=== PATIENT | female | born 1935 | race Caucasian/White ===

== ENCOUNTER 2018-12-12 01:27 | Emergency (ER) | payer OTHER ==
[~2018-12-12] VITALS: Ht 142.2 cm; Wt 50.3 kg
[2018-12-12 02:00] VITALS: BP_SYST 125
[2018-12-12] MEDS ORDERED: LEVO25TA2 PO (02:18)
[2018-12-12] MEDS ORDERED: LIP20 PO (02:18)
[2018-12-12] MEDS ORDERED: NACL 0.9% 1,000 ML IV ONE ×2 (03:15→04:30)
[2018-12-12] MEDS ORDERED: MORPHINE 2 MG/ML INJ. SYRINGE IVP ONE (03:45)
[2018-12-12 03:51] LABS: BASOPHILS % (AUTO) 0.2 % (0.0-2.0); EOSINOPHILS % (AUTO) 0.2 % (0.0-4.0); HEMATOCRIT 33.2 % (36-48); LYMPHOCYTES # (AUTO) 2.2 K/uL (1.0-5.5); LYMPHOCYTES % (AUTO) 15.1 % (20.5-51.5); MEAN CORPUSCULAR HEMOGLOBIN 29 pg (27-31); MEAN CORPUSCULAR HGB CONC 33 % (32-36); MEAN CORPUSCULAR VOLUME 88 fL (79.0-98.0); MONOCYTES % (AUTO) 6.9 % (1.7-9.3); NEUTROPHILS # (AUTO) 11.1 K/uL (1.8-7.7); NEUTROPHILS % (AUTO) 77.6 % (40.0-70.0); PLATELET COUNT (AUTO) 237 K/uL (130-430); RED BLOOD CELL COUNT(AUTO) 3.77 MIL/uL (4.2-6.2); WHITE BLOOD COUNT (AUTO) 14.2 K/uL (4.8-10.8)
[2018-12-12 04:05] LABS: ANION GAP 7 (5-15); CALCIUM 8.1 mg/dL (8.4-11.0); CHLORIDE 102 mmol/L (98-107); GLUCOSE 116 mg/dL (70-99); SODIUM SERUM 135 mmol/L (136-145); UREA NITROGEN, BLOOD 10 mg/dL (8-21)
[2018-12-12 04:07] LABS: PROTHROMBIN TIME 9.9 SECS (9.5-12.5)
[2018-12-12 04:11] LABS: ALANINE AMINOTRANSFERASE 19 U/L (12-78); ALBUMIN 3.1 g/dL (3.4-4.8); AMYLASE 27 U/L (0-100); ASPARTATE AMINOTRANSFERASE 48 U/L (10-37); LIPASE 45 U/L (73-393); TOTAL BILIRUBIN 1.1 mg/dL (0.0-1.0)
[2018-12-12 05:22] LABS: BILIRUBIN,URINE NEGATIVE (NEGATIVE); BLOOD, URINE 2+ (NEGATIVE); CLARITY/URINE CLEAR (CLEAR); COLOR,URINE YELLOW (YELLOW); GLUCOSE,URINE NEGATIVE (NEGATIVE); KETONES,URINE NEGATIVE (NEGATIVE); LEUKOCYTE ESTERASE ,URINE 2+ (NEGATIVE); NITRITE, URINE NEGATIVE (NEGATIVE); PH,URINE 5.5 (5.0-8.0); PROTEIN URINE NEGATIVE (NEGATIVE); UROBILINOGEN,URINE 0.2 (0.2-1.0)
[2018-12-12 05:28] LABS: BACTERIA,URINE FEW /HPF (None Seen)
[2018-12-12] MEDS ORDERED: cefTRIAXone 1 GM in D5W 50 ML IV ONE (05:45)
[2018-12-12] MEDS ORDERED: CEFAZOLIN 1 GM IVPB PREMIX 50 ML IV ONE (05:51)
[2018-12-12 06:45] VITALS: BP_SYST 110
== END 2018-12-12 06:45 | disposition home or self-care (01) ==
LOC: SED 01:27
DX: N39.0 Urinary tract infection, site not specified (principal); E78.5 Hyperlipidemia, unspecified; Z88.2 Allergy status to sulfonamides; Z79.899 Other long term (current) drug therapy
CPT/HCPCS: 36415; 74176; 80053; 81000; 82150; 83690; 85025; 85610; 87040; 87086; 96361; 96365; 96375; 99284; J0690; J2270; J7030

== ENCOUNTER 2019-10-09 13:50 | Emergency (ER) | payer OTHER ==
[~2019-10-09] VITALS: Ht 147.3 cm; Wt 52.6 kg
[~2019-10-09 13:50] MED LIST: LEVO25TA2 PO; LIP20 PO
[2019-10-09 14:20] VITALS: BP_SYST 155
[2019-10-09] MEDS ORDERED: FAMOTIDINE PF 20 MG/2 ML VIAL IVP ONE (14:30)
[2019-10-09] MEDS ORDERED: ONDANSETRON HCL 4 MG/2 ML VIAL IVP ONE (14:30)
[2019-10-09 15:19] LABS: BASOPHILS % (AUTO) 0.1 % (0.0-2.0); EOSINOPHILS % (AUTO) 0.2 % (0.0-4.0); HEMATOCRIT 38.5 % (36-48); HEMOGLOBIN 12.2 g/dL (12.0-16.0); LYMPHOCYTES # (AUTO) 2.4 K/uL (1.0-5.5); LYMPHOCYTES % (AUTO) 17.2 % (20.5-51.5); MEAN CORPUSCULAR HEMOGLOBIN 28 pg (27-31); MEAN CORPUSCULAR HGB CONC 32 % (32-36); MEAN CORPUSCULAR VOLUME 87 fL (79.0-98.0); MONOCYTES % (AUTO) 7.4 % (1.7-9.3); NEUTROPHILS # (AUTO) 10.6 K/uL (1.8-7.7); NEUTROPHILS % (AUTO) 75.1 % (40.0-70.0); PLATELET COUNT (AUTO) 299 K/uL (130-430); RED BLOOD CELL COUNT(AUTO) 4.45 MIL/uL (4.2-6.2); RED CELL DISTRIBUTION WIDTH 13.6 % (9.0-15.0); WHITE BLOOD COUNT (AUTO) 14.1 K/uL (4.8-10.8)
[2019-10-09 15:43] LABS: ANION GAP 7 (5-15); CALCIUM 8.8 mg/dL (8.4-11.0); CHLORIDE 96 mmol/L (98-107); CREATININE 0.86 mg/dL (0.55-1.30); GLUCOSE 135 mg/dL (70-99); POTASSIUM 4.3 mmol/L (3.5-5.1); SODIUM SERUM 131 mmol/L (136-145); UREA NITROGEN, BLOOD 12 mg/dL (8-21)
[2019-10-09] MEDS ORDERED: MAG HYDROX/AL HYDROX/SIMETH 30 ML, DICYCLOMINE HCL 20 MG, LIDOCAINE VISCOUS 2% 15ML (PO... PO ONE ×3 (15:45)
[2019-10-09 15:51] LABS: ALANINE AMINOTRANSFERASE 23 U/L (12-78); ALBUMIN 3.2 g/dL (3.4-4.8); ASPARTATE AMINOTRANSFERASE 25 U/L (10-37); LIPASE 25 U/L (73-393); TOTAL BILIRUBIN 1.1 mg/dL (0.0-1.0)
[2019-10-09 16:43] VITALS: BP_SYST 155
== END 2019-10-09 16:40 | disposition home or self-care (01) ==
LOC: SED 13:50
DX: K29.70 Gastritis, unspecified, without bleeding (principal); R10.13 Epigastric pain; E07.9 Disorder of thyroid, unspecified; E78.5 Hyperlipidemia, unspecified; Z88.2 Allergy status to sulfonamides
CPT/HCPCS: 36415; 76700; 80053; 83690; 84484; 85025; 93005; 96374; 96375; 99285; J2405; J3490